=== PATIENT | male | born 1965 | race Caucasian/White ===

== ENCOUNTER 2024-04-28 12:48 | Inpatient (IN) ==
--- NOTE | 2024-04-28 12:56 | Emergency Department Note ---
Impression & Plan STEMI (ST elevation myocardial infarction), Hypertension ED Provider Note Name: SATYA ARMSTRONG Age: 58 Sex: Male Arrives Via: Ambulance Informant: Patient, EMS, ED Provider: Earl Melendez MD Chief Complaint: Chest pain Impression: As per impressions above Medical Decision Makin-year-old gentleman with history of hypertension though no other significant past medical history arrives from outside facility after being diagnosed with a STEMI. I had excepted the patient prior to arrival we did activate the Operational Intelligence Analyst team. Patient was evaluated on arrival repeat EKG is more reassuring. Chest x- ray is reassuring. Laboratory workup was sent. His blood pressure was treated with labetalol and he was loaded with heparin and Brilinta. Patient breathing comfortably throughout. He is taken to the Operational Intelligence Analyst for further management. Given findings and history I do not feel that symptoms are consistent with aortic dissection or PE at this time. I believe primary cause is cardiac. Triage/Nursing Notes reviewed by Me Differential:Cardiac ischemia, aortic dissection, pulmonary embolism, pneumothorax, pneumonia, pericarditis, myocarditis, esophageal rupture, GERD, cholecystitis, pancreatitis, musculoskeletal, as well as other pathologies. Vital Signs: reviewed and remarkable for HTN Interventions: Brilinta 180 mg p.o., heparin 5000 units IV, labetalol 10 mg IV Labs:ED labs Reviewed by me and remarkable for elevated troponin Imagin view chest x-ray as per my interpretation no infiltrate no effusion, normal mediastinal with EKG:As per my interpretation. Indication chest pain. Normal sinus rhythm at 81 bpm no ectopy nor ischemia. QTc 457. There are some lateral ST depressions. No previous EKGs for comparison Cardiac/Tele Monitoring: Cardiac Monitoring: An Order was placed for continuous cardiac monitoring. The monitor shows a rate of 80 with a normal sinus rhythm. Consults:Discussed with Dr. Saenz of interventional cardiology who evaluated the patient on arrival and took patient to the Operational Intelligence Analyst. Plan: Disposition:Hospitalization. Taken to Operational Intelligence Analyst Condition: Good History of Present Illness: 58-year-old gentleman arrives for evaluation of chest pain. Patient notes development of chest pain around 10 AM this morning. Substernal left-sided pressure-like. No associated symptoms. Presented to outside hospital where patient was found to have STEMI morphology on EKG. He was given aspirin, nitro, morphine. Pain improved. He was sent to our facility via EMS for cardiac Operational Intelligence Analyst availability. Patient arrives stating minimal symptoms at this time. He has no significant known cardiac disease. Does have a history of hypertension. Denies significant family history of cardiac disease. Patient was previously a smoker but this is quite remote. Denies any falls, trauma, injuries. He has not had any recent palpitation, nausea, vomiting, fevers, lightheadedness, syncope or other concerning signs or symptoms. He is not currently having abdominal pain back pain headache or neck pain. No neurologic deficits. Past Medical History: Hypertension Home Medications: None Allergies:NKDA Vitals:Blood Pressure: 200/105, Pulse 80, RR 16, T 36.6C, O2 98% on RA Physical Exam: GENERAL: Patient is well appearing and in no acute distress. RESPIRATORY: No dyspnea. Clear to auscultation and equal bilaterally. CARDIOVASCULAR: Regular rate and rhythm.No murmur appreciated. GASTROINTESTINAL: Abdomen soft, non-tender, no peritonitis. EXTREMITIES: Normal motion all extremities, no cyanosis, no edema. NEUROLOGIC: Alert and oriented. No focal neurologic deficits appreciated SKIN: No rash, no jaundice, no diaphoresis. PSYCH: Appropriate GCS: 15 ED Course: Times/Reassessments: Patient stable blood pressure improving. No further significant chest pain. Earl Melendez MD Past Med/Surg History Problem List (Updated 04/28/24 @ 17:06 by Elena Nicole MD) NSTEMI (non-ST elevated myocardial infarction) CAD (coronary artery disease), [place] coronary artery Hypercholesteremia Coronary artery calcification seen on CAT scan STEMI (ST elevation myocardial infarction) Medical History Former smoker Hypertension Family History Other Family history unknown Social History Smoking Status: Former smoker Hx Alcohol Use: No Hx Substance Use: No Preferred Language: Urdu Communication Ability: Effective Awning Spreader Required: No Beliefs That Will Affect Care: None Current Living Situation: Spouse Feels Safe at Home: Yes Safety Concerns: Feels Safe At This Time Assistive Devices: None Allergies Allergies Allergy/AdvReac Type Severity Reaction Status Date / Time erythromycin base Allergy Unknown Verified 04/28/24 16:39 Home Meds Previous Rx's Medication Instructions Recorded aspirin 81 mg tablet,delayed 81 mg PO QAM #30 tabs 04/28/24 release metoprolol tartrate 25 mg tablet 25 mg PO BID #60 tabs 04/28/24 Results & Data (ED) Vital Signs Vital Signs - 24 hr 04/28/24 12:51 04/28/24 12:51 04/28/24 12:51 Temperature 36.9 C Temperature Source Oral Pulse Rate 77 Pulse Rate [Apical] 78 Pulse Rhythm Regular Pulse Rhythm [Apical] Regular Pulse Strength Normal Pulse Strength [Apical] Normal Respiratory Rate 22 22 Respiratory Effort / Characteristics Non-Labored Non-Labored Respiratory Depth Normal Normal Respiratory Pattern Regular Regular Blood Pressure 201/127 H Blood Pressure [Left Arm] 201/127 H Blood Pressure Mean 151 Blood Pressure Mean [Left Arm] 151 Blood Pressure Position [Left Arm] Lying Pulse Oximetry 98 97 Oxygen Delivery Method Room Air Room Air Room Air Sepsis Recent Fever Within 48 Hours No Sepsis New/Unexplained Change in Mental Status No Sepsis Action Taken by Nursing No Action Required 04/28/24 12:59 04/28/24 13:08 Temperature Temperature Source Pulse Rate 77 78 Pulse Rate [Apical] Pulse Rhythm Pulse Rhythm [Apical] Pulse Strength Pulse Strength [Apical] Respiratory Rate Respiratory Effort / Characteristics Respiratory Depth Respiratory Pattern Blood Pressure 189/124 H Blood Pressure [Left Arm] Blood Pressure Mean Blood Pressure Mean [Left Arm] Blood Pressure Position [Left Arm] Pulse Oximetry Oxygen Delivery Method Sepsis Recent Fever Within 48 Hours Sepsis New/Unexplained Change in Mental Status Sepsis Action Taken by Nursing Laboratory Data 04/28/24 15:23 04/28/24 12:52 Lab Results 04/28/24 04/28/24 Range/Units 12:52 12:58 WBC 10.17 (4.8-10.8) K/ul RBC 4.91 (4.70-6.10) M/uL Hgb 14.9 (14.0-18.0) g/dl POC Hgb 15.3 (14.0-18.0) g/dl Hct 44.8 (42.0-52.0) % POC Hct 45 (42-52) % MCV 91.2 (80.0-100.0) fL MCH 30.3 (25.0-34.0) pg MCHC 33.3 (32.0-36.0) g/dL RDW Std Deviation 41.8 (36.4-46.3) fL RDW Coeff of Julia 12.8 (11.5-14.5) % Plt Count 174 (130-400) K/uL MPV 10.3 (9.4-12.4) fL Immature Gran % (Auto) 0.4 % Neut % (Auto) 79.6 % Lymph % (Auto) 10.5 % Chase % (Auto) 8.5 % Eos % (Auto) 0.7 % Baso % (Auto) 0.3 % Neut # (Auto) 8.10 H (1.40-6.50) K/uL Lymph # (Auto) 1.07 L (1.20-3.40) K/uL Chase # (Auto) 0.86 H (0.11-0.59) K/uL Eos # (Auto) 0.07 (0.00-0.50) K/uL Baso # (Auto) 0.03 (0.00-0.20) K/uL Immature Gran # (Auto) 0.04 (0.01-0.20) K/uL PT 10.3 (9.0-12.0) Seconds INR 0.9 (0.9-1.1) APTT 28 (21-31) Seconds PTT Ratio 1.0 POC Sodium 141 (135-144) mmol/L Sodium 141 (136-145) mmol/L POC Potassium 4.3 (3.3-5.0) mmol/L Potassium 4.3 (3.5-5.1) mmol/L POC Chloride 107 (101-112) mmol/L Chloride 108 H (98-107) mmol/L Carbon Dioxide 27 (21-32) mmol/L POC Total CO2 24 (24-31) mmol/L Anion Gap 6 (3-11) POC Anion Gap 16.0 (16-25) mmol/L POC BUN 19 H (7-18) mg/dl BUN 19 (6-23) mg/dl Creatinine 1.16 (0.6-1.4) mg/dl POC Creatinine 1.2 (0.6-1.3) mg/dl Est Cr Clr Drug Dosing 75.7 ml/min eGFR 73.92 BUN/Creatinine Ratio 16.4 (10-20) Glucose 98 (70-99(Fasting)) mg/dl POC Glucose (other) 99 (70-99) mg/dl Calcium 9.1 (8.6-10.3) mg/dl POC Ioniz Calcium Pavan 1.13 (1.12-1.32) mmol/l Magnesium 1.9 (1.7-2.4) mg/dl Total Bilirubin 0.6 (0.2-1.0) mg/dl Direct Bilirubin 0.1 (0-0.2) mg/dl AST 39 (13-39) U/L ALT 79 H (7-52) U/L Alkaline Phosphatase 84 (34-104) U/L Troponin I High Sens 153.8 H* (0-20) pg/ml Total Protein 7.5 (6.0-8.3) gm/dl Albumin 4.4 (3.4-5.0) gm/dl Administered Medications Heparin Sodium/Dextrose (Heparin Sodium/Dextrose) 25,000 units in 500 mls @ 0.02 mls/hr IV .Q24H [facility]; Protocol Stop: 05/28/24 15:29 Last Admin: 04/28/24 15:00 Dose: 950 units/hr, 19 mls/hr Documented By: LAF Co-signed By: WRS Discontinued Medications Fentanyl Citrate (Fentanyl Citrate Pf 100 Mcg/2 Ml Vial) Confirm Administered Dose 100 mcg .ROUTE .STK-MED ONE Stop: 04/28/24 12:58 Last Increment: 04/28/24 14:49 Dose: 75 mcg Documented By: BPY Heparin Sodium (Porcine) (Heparin Sod (Porcine) 1000 Unit/Ml) 5,000 units IV NOW ONE Stop: 04/28/24 12:55 Last Admin: 04/28/24 13:07 Dose: 5,000 units Documented By: SRL Co-signed By: QGV Heparin Sodium (Porcine) (Heparin (Porcine) 1000 Unit/Ml 10 Ml (Operational Intelligence Analyst Use Only)) Confirm Administered Dose 10,000 units .ROUTE .STK-MED ONE Stop: 04/28/24 12:58 Last Admin: 04/28/24 14:48 Dose: 5,000 units Documented By: BPY Heparin Sodium/Dextrose (Heparin 29292 Unit/500 Ml D5w) Confirm Administered Dose 25,000 units IV .STK-MED ONE Stop: 04/28/24 14:39 Last Admin: 04/28/24 16:37 Dose: Not Given Documented By: SUKH Heparin Sodium/Dextrose (Heparin Iv Adult Wt-Based Low-Dose *No* Initial Bolus Protocol) 1 each IV ONE STA; Protocol Stop: 04/28/24 15:03 Last Admin: 04/28/24 16:41 Dose: Not Given Documented By: SUKH Heparin Sodium/Sodium Chloride (Heparin In Nss Infusion 1000 Unit/500 Ml (2 U/Ml) Bag) Confirm Administered Dose 3,000 units IV .STK-MED ONE Stop: 04/28/24 12:58 Last Admin: 04/28/24 13:42 Dose: 3,000 units Documented By: MICHAELLE Ioversol (Optiray 350) Confirm Administered Dose 1 ml .ROUTE .STK-MED ONE Stop: 04/28/24 12:58 Last Admin: 04/28/24 14:47 Dose: 300 ml Documented By: MICHAELLE Labetalol HCl (Labetalol Hcl Iv 5 Mg/Ml 20ml) 10 mg IV NOW STA Stop: 04/28/24 12:55 Last Admin: 04/28/24 13:08 Dose: 10 mg Documented By: SRL Midazolam HCl (Midazolam Hcl 1 Mg/Ml 2ml Vial) Confirm Administered Dose 2 mg .ROUTE .STK-MED ONE Stop: 04/28/24 12:57 Last Admin: 04/28/24 14:49 Dose: 3 mg Documented By: Y Midazolam HCl (Midazolam Hcl 1 Mg/Ml 2ml Vial) Confirm Administered Dose 2 mg .ROUTE .STK-MED ONE Stop: 04/28/24 13:56 Last Admin: 04/28/24 16:37 Dose: Not Given Documented By: SUKH Miscellaneous Information (Patient's Allergy Info Needs Entered) 1 each N/A NOW STA Stop: 04/28/24 14:57 Last Admin: 04/28/24 16:40 Dose: 1 each Documented By: SUKH Nicardipine HCl (Nicardipine 2,000 Mcg/20 Ml Syr) Confirm Administered Dose 2,000 mcg .ROUTE .STK-MED ONE Stop: 04/28/24 12:58 Last Admin: 04/28/24 13:42 Dose: Not Given Documented By: BPY Nitroglycerin/Dextrose (Nitroglycerin/D5w 100mcg/Ml 20ml Syr) Confirm Administered Dose 2,000 mcg .ROUTE .STK-MED ONE Stop: 04/28/24 12:58 Last Admin: 04/28/24 13:42 Dose: 2,000 mcg Documented By: RUTH Ticagrelor (Ticagrelor 90 Mg Tab) 180 mg PO ONE ONE Stop: 04/28/24 12:55 Last Admin: 04/28/24 13:07 Dose: 180 mg Documented By: SRLeticia Imaging Data Radiologist's Impression: Chest X-Ray 04/28/24 12:51 XR chest 1V portable CLINICAL HISTORY: chest pain TECHNIQUE: Single frontal radiograph of the chest was obtained. Comparison: None available at the time of this dictation. FINDINGS: No lines and tubes are seen. The cardiomediastinal silhouette is normal. The lungs are clear. No evidence of pleural effusion or pneumothorax. IMPRESSION: No acute chest disease. ACT 112: Negative or not required by law. Electronically signed by: Tristan Green M.D. 04/28/2024 2:16 PM Discharge Plan Visit Data Chief Complaint: Heart Alert ED Provider: Earl Melendez Discharge Problem: STEMI (ST elevation myocardial infarction), Hypertension Patient Disposition: Admitted As Inpatient Condition: Fair Discharge Instructions Interventions: ED Discharge Assessment Last Done: 04/28/24 13:17 Discharge Problem: STEMI (ST elevation myocardial infarction) Qualifiers: Involved coronary artery: unspecified coronary artery Qualified Code(s): I21.3 - ST elevation (STEMI) myocardial infarction of unspecified site Hypertension Qualifiers: Hypertension type: unspecified Qualified Code(s): I10 - Essential (primary) hypertension
--- NOTE | 2024-04-28 13:06 | History & Physical Report ---
Date of Service April 28, 2024 Assessment & Plan (1) STEMI (ST elevation myocardial infarction): (2) Hypertension: (3) Former smoker: Plan 58-year-old male with PMHx hypertension not on medications presenting via EMS for chest pain starting at 1000 the day of arrival. Patient noted he started to have a intense chest pain starting in his left chest, substernal, spreading across the entirety of his chest. Went to outside emergency department where EKG showed signs of an inferior STEMI, so patient was sent here for catheterization availability. #STEMI/HTN Chest pain started at 1000, located substernally mainly on left side; presented to outside ED, EKG showing evidence of STEMI in inferior leads, patient transferred to [facility]; states no current chest pain but does have chest pressure. Received ASA, NTG, and morphine en route to [facility]. Not on medications for HTN normally. - Admit ICU - EKG NSR w/ ? LAD on arrival to ED, appearing to have lateral lead ST depressions per my read; rate 81 bpm - Troponin 121 en route, 153.8 upon arrival; pending repeats - CBC, CMP, grossly WNL; PT/INR 10.3/0.9; Echo pending; CXR pending - Received ASA + NTG + morphine prior to arrival to [facility]; Received Ticagrelor + labetalol + heparin in ED - No lipid panel in hx however does have low dose CT chest (2022) showing advanced coronary artery calcification --> Start atorvastatin 40mg qHS, pending lipid panel - Following cath consider addition of - Metoprolol 12.5mg + lisinopril 10mg - Cardiology consulted -> Pt to laboratory miller 04/28 --> Appreciate cardiology input and recs Dispo: Admit ICU, needs to re-establish with [facility] PCP after discharge VTE Prophylaxis: Heparin received upon arrival to ED This document was dictated utilizing [employer]. Please excuse any grammatical errors that may be secondary to use of this software. Admission and Anticipated Discharge Date Admission Date: 04/28/2024 History of Present Illness Chief Complaint: Chest pain Primary Care Provider: NO PCP 58-year-old male with PMHx hypertension not on medications presenting via EMS 58-year-old male with chest pain starting at 1000 the day of arrival. Patient noted he started to have a intense chest pain starting in his left chest, substernal, spreading across the entirety of his chest. Went to outside emergency department at [facility] where EKG showed signs of a STEMI, so patient was sent here for catheterization availability. Had already been provided with aspirin, nitro, morphine. Patient has continued chest pressure/tightness without relief, but has not had associated symptoms to include shortness of breath, palpitations, abdominal pain, N/V/D/C, or lightheadedness/dizziness. Patient is unaware of his family medical history as he was adopted. States he does have a history of hypertension, however does not take medications. Was a previous smoker, no longer smoking. Does not take daily medications. History was gathered by patient in conjunction with ED physician and computer graphics illustrator. Please see Dr. Nicole's attestation for adjustments/additions to treatment plan. Past Med/Surg History Problem List (Updated 04/28/24 @ 13:42 by Kaleigh Gregg PA-C) STEMI (ST elevation myocardial infarction) Medical History (Updated 04/28/24 @ 13:42 by Kaleigh Gregg PA-C) Former smoker Hypertension Family History (Updated 04/28/24 @ 14:38 by Elena Nicole MD) Other Family history unknown Social History Smoking Status: Former smoker Feels Safe at Home: Yes Review of Systems Review of Systems: All systems reviewed & are unremarkable except as noted in Subjective Physical Exam Physical Exam: General: No acute distress, hypertensive on arrival Skin: Warm and dry, without rashes or lesions; no diaphoresis Head: Normocephalic, atraumatic Eyes: PERRL, conjunctivae clear, sclera non-icteric ENT: External ear and ear canal without swelling; nose atraumatic; good dentition, tongue normal appearance Neck: Supple, no LAD; no JVD Cardio: RRR, no M/G/R, S1 and S2 normal Resp: No respiratory distress, Lungs CTA in all lobes bilaterally, no wheezes, rales, or rhonchi Abdomen: Soft, symmetric, nontender; No masses or hepatosplenomegaly; Bowel sounds normoactive MSK: No deformities, full ROM throughout; pulses palpable and equal; no edema. Neuro: Awake, alert; CN grossly intact Psych: Appropriate mood and affect; good judgement and insight. Results & Data Results & Data Vital Signs (Past 12 Hours) Vital Signs Pulse 04/28/24 12:59 77 Laboratory Results no labs available for review at the time of admission Code Status & VTE Plan Code Status Full VTE Prophylaxis Plan VTE Prophylaxis will be ordered: Yes Supervising Physician Co-Signing Physician Notes ELLIOT Schafer Note: I personally saw and examined the patient. I verified all gutierrez points and agree with ELLIOT Gregg with the following exceptions and/or additions: [facility] after having severe substernal and left sided CP starting at 1000 AM today. He has a h/o untreated HTN and is a former smoker but hasn't seen a doctor in a couple of years reportedly. He received ASA, NTG, morphine at outside facility and was almost pain free when I saw him shortly after arrival. I discussed his care with the ED physician and Dr. Saenz of Cardiology. History and ROS reviewed as above O- Vitals reviewed Gen: [AAOx3, NAD] HEENT: [anicteric sclerae, EOMI] CV: [RRR no mgr nl S1S2] Pulm: [CTAB no wcr] Ext: [no edema] Skin: [no rashes, warm/dry] Neuro: [full strength throughout, no facial droop] CBC, CMP, troponin reviewed, CXR reviewed A/P-58 yo male here with STEMI. Headed to laboratory miller will add on further medical management of CAD post-cath depending on clinical course add ASA, statin for now nad loaded with Brilinta and heparin check lipids, A1C, BMP, CBC in AM will need HTN treatment PG Care Time/CCT Total # of Minutes Spent Total Time Spent with Patient: Total time spent is greater than 50% in coordination of care (as documented) at patient's floor/unit and/or counseling patient: Coding Level of Care Code 64299 INT INP/OBS CARE 3/75MIN Diagnoses STEMI (ST elevation myocardial infarction) I21.3 Hypertension I10 Former smoker Z87.891
[2024-04-28] MEDS: TICAGRELOR 90 MG TAB PO ONE (13:07)
[2024-04-28] MEDS: HEPARIN SOD (PORCINE) 1000 UNIT/ML IV ONE (13:07)
[2024-04-28] MEDS: LABETALOL HCL IV 5 MG/ML 20ML IV STA (13:08)
[2024-04-28 13:10] LABS: iSTAT Creatinine 1.2 mg/dl (0.6-1.3); iSTAT Hemoglobin 15.3 g/dl (14.0-18.0); iSTAT Ionized Calcium 1.13 mmol/l (1.12-1.32); iSTAT Potassium 4.3 mmol/L (3.3-5.0)
[2024-04-28 13:11] LABS: Basophils # (auto) 0.03 K/uL (0.00-0.20); Basophils % (auto) 0.3 %; Eosinophils # (auto) 0.07 K/uL (0.00-0.50); Eosinophils % (auto) 0.7 %; Hematocrit (blood only) 44.8 % (42.0-52.0); Hemoglobin 14.9 g/dl (14.0-18.0); Immature Granulocytes # (auto) 0.04 K/uL (0.01-0.20); Immature Granulocytes % (auto) 0.4 %; Lymphocytes # (auto) 1.07 K/uL (1.20-3.40); Lymphocytes % (auto) 10.5 %; Mean Corpuscular Hemoglobin 30.3 pg (25.0-34.0); Mean Corpuscular Hgb Conc 33.3 g/dL (32.0-36.0); Mean Corpuscular Volume 91.2 fL (80.0-100.0); Mean Platelet Volume 10.3 fL (9.4-12.4); Monocytes # (auto) 0.86 K/uL (0.11-0.59); Monocytes % (auto) 8.5 %; Neutrophils % (auto) 79.6 %; Platelet Count 174 K/uL (130-400); RDW Coefficient of Variation 12.8 % (11.5-14.5); RDW Standard Deviation 41.8 fL (36.4-46.3); Red Blood Count 4.91 M/uL (4.70-6.10); White Blood Count 10.17 K/ul (4.8-10.8)
[2024-04-28 13:24] LABS: Albumin Level 4.4 gm/dl (3.4-5.0); BUN Creatinine Ratio 16.4 (10-20); Bilirubin Direct 0.1 mg/dl (0-0.2); Bilirubin,Total 0.6 mg/dl (0.2-1.0); Calcium 9.1 mg/dl (8.6-10.3); Creatinine Clr Calc Pharmacy 75.7 ml/min; Magnesium 1.9 mg/dl (1.7-2.4); Potassium 4.3 mmol/L (3.5-5.1); Total Protein 7.5 gm/dl (6.0-8.3)
[2024-04-28 13:34] LABS: Troponin I High Sensitivity 153.8 pg/ml (0-20)
[2024-04-28 13:36] LABS: INR 0.9 (0.9-1.1); Partial Thromboplastin Time 28 Seconds (21-31); Prothrombin Time 10.3 Seconds (9.0-12.0)
[2024-04-28] MEDS: niCARdipine 2,000 MCG/20 ML SYR ONE (13:42)
[2024-04-28] MEDS: NITROGLYCERIN/D5W 100MCG/ML 20ML SYR ONE (13:42)
--- NOTE | 2024-04-28 14:17 | XRay Report ---
XR chest 1V portable CLINICAL HISTORY: chest pain TECHNIQUE: Single frontal radiograph of the chest was obtained. Comparison: None available at the time of this dictation. FINDINGS: No lines and tubes are seen. The cardiomediastinal silhouette is normal. The lungs are clear. No evid ence of pleural effusion or pneumothorax. IMPRESSION: No acute chest disease. ACT 112: Negative or not required by law. Electronically signed by: Tristan Green M.D. 04/28/2024 2:16 PM
[2024-04-28] MEDS: OPTIRAY 350 ONE (14:47)
[2024-04-28] MEDS: HEPARIN (PORCINE) 1000 UNIT/ML 10 ML (CATH LAB USE ONLY) ONE (14:48)
[2024-04-28] MEDS: fentaNYL citrate PF 100 MCG/2 ML VIAL ONE (14:49)
[2024-04-28] MEDS: MIDAZOLAM HCL 1 MG/ML 2ML VIAL ONE ×2 (14:49→16:37)
[2024-04-28] MEDS ORDERED: ONDANSETRON INJ 2 MG/ML 2 ML VIAL IV PRN (14:56)
[2024-04-28] MEDS ORDERED: ATROPINE SULFATE 0.1 MG/ML 10ML SYR IV PRN (14:56)
--- NOTE | 2024-04-28 14:56 | Pre Anesthesia Assessment ---
Date of Service April 28, 2024 Pre Sedation Assessment Vital Signs Temp Pulse Pulse Resp BP BP Pulse Ox 04/28/24 13:15 73 21 183/117 H 96 04/28/24 13:08 78 189/124 H 04/28/24 12:59 77 04/28/24 12:51 78 22 201/127 H 97 04/28/24 12:51 04/28/24 12:51 36.9 C 77 22 201/127 H 98 O2 Del Method 04/28/24 13:15 Room Air 04/28/24 13:08 04/28/24 12:59 04/28/24 12:51 Room Air 04/28/24 12:51 Room Air 04/28/24 12:51 Room Air Cardiovascular RRR, no murmur, no edema Respiratory normal respiratory effort, lungs clear to auscultation Pre-Sedation Airway Assessment Smoking Status: Former smoker mallampati 2 ASA 4 Notes The planned sedation has been discussed with the patient. Informed Consent was obtained. I have identified the patient, determined the appropriateness of nataly tion and have assessed the patient immediately prior to the procedure. All medicine(s) and interventions are by my order.
[2024-04-28] MEDS: HEPARIN SODIUM/DEXTROSE 25,000 UNITS/500 ML BAG IV SCH (15:00)
--- NOTE | 2024-04-28 15:06 | Post Anesthesia Assessment ---
Date of Service April 28, 2024 Post Sedation Assessment Vital Signs Temp Pulse Pulse Resp BP BP Pulse Ox 04/28/24 13:15 73 21 183/117 H 96 04/28/24 13:08 78 189/124 H 04/28/24 12:59 77 04/28/24 12:51 78 22 201/127 H 97 04/28/24 12:51 04/28/24 12:51 36.9 C 77 22 201/127 H 98 O2 Del Method 04/28/24 13:15 Room Air 04/28/24 13:08 04/28/24 12:59 04/28/24 12:51 Room Air 04/28/24 12:51 Room Air 04/28/24 12:51 Room Air Recovery Score Activity: Moves 4 extremities Respiration: Deep Breath/Cough Circulation: +/-20% PreAnes Value Consciousness: Fully Awake Oxygen Saturation: > 92% On Room Air Discharge Sedation Level of Care: Fast Track Phase II Post Sedation Plan On clinical assessment, the patient appears to have tolerated the sedation without complications. Patient is recovering as anticipated. Patient will continue to be monitored by nursing and may be discharged when sedation discharge criteria are met per below protocol. Upon Completions of procedure up to 15 minutes continue every 5 minute vital signs and the P.A.R. score; then discharge to a Phase I or Fast Track to Phase II per the following guidelines: * Discharge Patient to appropriate Phase II area if PAR is 8 or greater or return to pre- procedure baseline. The post - procedure orders will be as directed. * If PAR score is less than 8 or not return to pre-procedure baseline then patient will follow Phase I monitoring till PAR is reached for Phase II. The Phase I may be done in procedure room or may call to secure a Phase I area. * If naloxone or flumazenil are used for reversal, hold in Phase I for continued monitoring from when last reversal dose was given for a minimum of 60 minutes or longer pending the nurse and/or physician discretion of patient condition before discharge to Phase II. Please call the Sedation Physician to re-evaluate and complete post-note for discharge to Phase II area. Do NOT discharge from procedure sedation or Phase 1 until post- sedation evaluation note is complete by procedure /sedation MD Sedation Discharge Instructions to be given to the patient at discharge to home. [facility] Procedure Codes (Charges) Indication for Procedure Indication for procedure: inferior STEMI Sedation/Anesthesia Procedure 1: Sedation/Anesthesia: 57676 Mod Sedation by the same physician;Init15 Min Child Age 5 & Up (initial 15 min, start 1326) Total Sedation Time (minutes): 68 Procedure 2: Sedation/Anesthesia: 05907 Mod Sedation by the same physician; Ea [id number] Minutes (additional 53 min) Total Sedation Time (minutes): 68
[2024-04-28 15:46] LABS: Basophils # (auto) 0.03 K/uL (0.00-0.20); Basophils % (auto) 0.3 %; Eosinophils # (auto) 0.03 K/uL (0.00-0.50); Eosinophils % (auto) 0.3 %; Hematocrit (blood only) 45.5 % (42.0-52.0); Hemoglobin 15.5 g/dl (14.0-18.0); Immature Granulocytes # (auto) 0.05 K/uL (0.01-0.20); Immature Granulocytes % (auto) 0.5 %; Lymphocytes # (auto) 1.31 K/uL (1.20-3.40); Lymphocytes % (auto) 12.1 %; Mean Corpuscular Hemoglobin 30.8 pg (25.0-34.0); Mean Corpuscular Hgb Conc 34.1 g/dL (32.0-36.0); Mean Corpuscular Volume 90.3 fL (80.0-100.0); Mean Platelet Volume 10.4 fL (9.4-12.4); Monocytes # (auto) 0.73 K/uL (0.11-0.59); Monocytes % (auto) 6.8 %; Neutrophils # (auto) 8.65 K/uL (1.40-6.50); Platelet Count 190 K/uL (130-400); RDW Coefficient of Variation 12.8 % (11.5-14.5); RDW Standard Deviation 42.5 fL (36.4-46.3); Red Blood Count 5.04 M/uL (4.70-6.10)
[2024-04-28 16:01] LABS: Chol HDL Ratio 4.7 (0-5)
[2024-04-28] MEDS: HEPARIN 25000 UNIT/500 ML D5W IV ONE (16:37)
--- NOTE | 2024-04-28 16:39 | Cardiology Consultation ---
Date of Consultation April 28, 2024 Assessment & Plan (1) STEMI (ST elevation myocardial infarction): (2) Coronary artery calcification seen on CAT scan: (3) Hypercholesteremia: Plan For transfer to [facility] [place] for further eval for possible CABG vs higher risk CBI. Cont ASA, IV heparin, hold further Brilinta until eval. Start Beta israel and statin for 2nd prevention. Depending on tertiary eval, further recommendations will follow. I would like to follow up with patient post DC from [place]. He needs to establish with a local PCP, since prior family physician moved out of area. History of Present Illness Reason for Consultation: cardiology consult for STEMI Attending Physician: José Miguel Saenz MD, PhD History of Present Illness This is a 58 y/o man, retired [employer], seen in CV consultation in conjunction with Dr. Saenz. Most of the history was obtained from the patients [place]. He has had hypertension which was being treated with lifestyle modification, stopped smking about 2 years ago, hx of being adopted, family his is unknown. His old chart was reviewed. He presented today with new onset CP described as pressure today. Was initially taken to [facility] in [place] and transferred to [facility] due to acute ST changes showing inferior ST elevation. Initial cardiac enzymes were abnormal. Patient treated for initial severe HTN. Pat taken to the photo lab specialist and found to have significant Cx and LAD disease with heavily calcified vessels. V gram shows lateral hypo-akinesis. LVEDP slightly increased approx 18-20mmHb. After discussion with Dr. Saenz with both felt the Cx was the culprit vessel and he attempted to stent the Cx vessel, but was unable to place stent due to tortuosity. He was able to do limited PTCA. Because of the heavily calcified LAD lesion with a bifurcation lesion involving the prox-mid LAD at the 1st Diagonal vessel, it was decided that this disease would be better treated at tertiary center were CT surgery was available. Dr. Saenz spoke with Dr. Washington who accepted the patient in transfer. CABG vs CBI will be determined there. Pt was given initial dose of Brilinta, is on IV heparin as well as ASA. Pt will need Beta israel as well as statin initiated. Cath results were reviewed with patients and they agree with transfer. Of note, he underwent low dose CT scan in early 2022 done for hx tobacco use for screening for lung CA which was negative, but did show extensive coronary artery calcification of the LAD as well as Cx. Allergies Allergy/AdvReac Type Severity Reaction Status Date / Time No Known Allergies Allergy Unverified 04/28/24 16:33 Patient History Medical History Former smoker Hypertension Family History Other Family history unknown Social History Smoking Status: Former smoker Hx Alcohol Use: No Hx Substance Use: No Preferred Language: Kazakh Communication Ability: Effective Engineering Geologist Required: No Beliefs That Will Affect Care: None Current Living Situation: Spouse Feels Safe at Home: Yes Safety Concerns: Feels Safe At This Time Assistive Devices: None Review of Systems Review of Systems: All systems reviewed & are unremarkable except as noted in HPI & below Physical Exam Physical Exam: limited exam performed due to being taken to photo lab specialist Results & Data Vital Signs (Past 12 Hours) Vital Signs Temp Pulse Pulse Resp BP BP Pulse Ox 04/28/24 16:00 69 18 158/115 H 99 04/28/24 15:56 74 04/28/24 15:45 71 15 147/107 H 97 04/28/24 15:33 76 22 99 04/28/24 15:30 168/112 H 04/28/24 15:30 168/112 H 04/28/24 15:24 75 18 98 04/28/24 15:15 160/110 H 04/28/24 15:10 151/112 H 04/28/24 13:15 73 21 183/117 H 96 04/28/24 13:08 78 189/124 H 04/28/24 12:59 77 04/28/24 12:51 78 22 201/127 H 97 04/28/24 12:51 04/28/24 12:51 36.9 C 77 22 201/127 H 98 O2 Del Method 04/28/24 16:00 Room Air 04/28/24 15:56 04/28/24 15:45 Room Air 04/28/24 15:33 Room Air 04/28/24 15:30 04/28/24 15:30 04/28/24 15:24 Room Air 04/28/24 15:15 04/28/24 15:10 04/28/24 13:15 Room Air 04/28/24 13:08 04/28/24 12:59 04/28/24 12:51 Room Air 04/28/24 12:51 Room Air 04/28/24 12:51 Room Air Laboratory Results Abnormal lab results 04/28/24 04/28/24 04/28/24 Range/Units 12:52 12:58 13:34 Neut # (Auto) 8.10 H (1.40-6.50) K/uL Lymph # (Auto) 1.07 L (1.20-3.40) K/uL Hodgeman # (Auto) 0.86 H (0.11-0.59) K/uL Activ Coag Time Kaolin 187 H (94-140) SECONDS Chloride 108 H (98-107) mmol/L POC BUN 19 H (7-18) mg/dl ALT 79 H (7-52) U/L Troponin I High Sens 153.8 H* (0-20) pg/ml Cholesterol (0-200) mg/dl 04/28/24 04/28/24 04/28/24 Range/Units 14:00 14:29 15:23 Neut # (Auto) 8.65 H (1.40-6.50) K/uL Lymph # (Auto) (1.20-3.40) K/uL Hodgeman # (Auto) 0.73 H (0.11-0.59) K/uL Activ Coag Time Kaolin 210 H 349 H (94-140) SECONDS Chloride (98-107) mmol/L POC BUN (7-18) mg/dl ALT (7-52) U/L Troponin I High Sens 1851.0 H* D (0-20) pg/ml Cholesterol 240 H (0-200) mg/dl
[2024-04-28] MEDS: Patient's ALLERGY Info needs ENTERED STA (16:40)
[2024-04-28 16:41] LABS: Estimated Average Glucose 108 mg/dl; Hemoglobin A1C 5.4 % (4.5-5.6)
[2024-04-28] MEDS: Heparin IV Adult Wt-Based Low-Dose *NO* INITIAL Bolus Protocol IV STA (16:41)
--- NOTE | 2024-04-28 16:41 | Electrocardiogram Report ---
Test Reason : Blood Pressure : */* mmHG Vent. Rate : 81 BPM Atrial Rate : 81 BPM P-R Int : 138 ms QRS Dur : 98 ms QT Int : 394 ms P-R-T Axes : 48 78 46 degrees QTcB Int : 457 ms Normal sinus rhythm Possible Left atrial enlargement Nonspecific ST abnormality Abnormal ECG No previous ECGs available Inferior ST elevation has improved c/w outside ECG Confirmed by Ava Gonzales (Alonso) on 04/28/2024 4:41:04 PM Referred By: REFERRED SELF Confirmed By: Ava Gonzales
--- NOTE | 2024-04-28 17:10 | Discharge Summary ---
Discharge Summary Date of Service April 28, 2024 Principal Dx & Hospital Course #1 = Principal Diagnosis (1) CAD (coronary artery disease), [place] coronary artery: (2) NSTEMI (non-ST elevated myocardial infarction): (3) Hypertension: (4) Hypercholesteremia: (5) Former smoker: Plan This patient is a 58-year-old male with PMHx hypertension not on medications presenting via EMS for chest pain starting at 1000 the day of arrival. Patient noted he started to have a intense chest pain starting in his left chest, substernal, spreading across the entirety of his chest. Went to outside emergency department where EKG showed signs of an inferior STEMI, so patient was sent here for catheterization availability. #STEMI/HTN/hyperlipidemia Chest pain started at 1000, located substernally mainly on left side; presented to outside ED, EKG showing evidence of STEMI in inferior leads, patient transferred to [facility]. Received ASA, NTG, and morphine en route to [facility]. ECG at this facility showed ST depressions in the lateral leads. Troponin initially here was 153 and increased to 1851 prior to discharge. Not on medications for HTN normally. He had a cardiac catheterization which showed severe CAD with multivessel disease and had angioplasty but no stents placed. Recommendation was transfer out to tertiary care center for evaluation for CABG. He did receive a load of Brilinta prior to catheterization. He was started on aspirin, heparin drip, atorvastatin 40 mg daily, metoprolol 25 Mg p.o. twice daily prior to discharge CBC, CMP, grossly WNL; PT/INR 10.3/0.9; Echo pending at the time of discharge. Chest x-ray normal Lipid panel showed significant hyperlipidemia with total cholesterol being 240, LDL elevated at 172, HDL 51. Hemoglobin A1c was normal at 5.4% He was accepted in transfer by CT surgeon Dr. Jones at [facility] as discussed with Dr. Saenz/cardiology here at [facility]. He is in stable condition for transfer by ground ACLS. Dispo: Discharge to [facility] VTE Prophylaxis: Heparin gtt Notes For Next Care Provider Transferred to [facility] Medication Changes From Visit See list below Admission HPI Per Admitting Provider 58-year-old male with PMHx hypertension not on medications presenting via EMS 58-year-old male with chest pain starting at 1000 the day of arrival. Patient noted he started to have a intense chest pain starting in his left chest, substernal, spreading across the entirety of his chest. Went to outside emergency department at [facility] where EKG showed signs of a STEMI, so patient was sent here for catheterization availability. Had already been provided with aspirin, nitro, morphine. Patient has continued chest pressure/tightness without relief, but has not had associated symptoms to include shortness of breath, palpitations, abdominal pain, N/V/D/C, or lightheadedness/dizziness. Patient is unaware of his family medical history as he was adopted. States he does have a history of hypertension, however does not take medications. Was a previous smoker, no longer smoking. Does not take daily medications. History was gathered by patient in conjunction with ED physician and supervisor of research. Please see Dr. Nicole's attestation for adjustments/additions to treatment plan. Discharge Exam Constitutional WD/WN, vitals as above Respiratory normal respiratory effort, lungs clear to auscultation Cardiovascular RRR, no murmur, no edema Neurologic PERRL, EOMI, accommodation nl, no face palsy, no dysarthria moves all extremities and awake; no focal motor deficits Psychiatric A+Ox3, euthymic affect Discharge Plan Discharge Items Patient Disposition: Transfer Acute Care Hospital Reason For Visit: HEART ALERT Discharge Diagnosis: Severe CAD Condition on Discharge: Fair Activity: As commented below Exercise/Sports: Rest today Non-emergency contact: Primary Care Provider and Wheat Combine Driver Call non-emergency contact if: you have any medication questions and your symptoms worsen Follow-up/Referrals: PCP,NO [Primary Care Provider] - Diet: Heart Healthy Addtl Attending Provider Instructions: Transferred to [facility] for evaluation for CABG Stand-Alone Forms: My [facility] Skilled Items Patient informed of condition?: Yes DNR: No Discharge Level of Care: Other Communicable Disease: No Discharge Prognosis: Stable Lines: Peripheral IV Urinary Catheter: No Medications and DC Order Prescriptions: New aspirin 81 mg Tablet,Delayed Release (Dr/Ec) 81 mg PO QAM Qty: 30 0RF metoprolol tartrate 25 mg Tablet 25 mg PO BID Qty: 60 0RF atorvastatin 40 mg Tablet 40 mg PO QAM Qty: 30 0RF Discharge Orders: Discharge Order (Routine); Ordered 04/28/24 Ordered By: Elena Nicole Admission Data Admit Date/Time: 04/28/24 13:15 Attending Provider: José Miguel Saenz Admit Provider: Elena Nicole Primary Care Provider: PCP,NO Other Providers: Elena Nicole; Ava Gonzales; Jamie Addison; Juan Manuel Bales; Jerson Cristobal; Owen Harper; Sunil Wylie; Jonn Ingram; Charanjit Santos; Lexi Reed; Rosey Carlson; Walter Haynes; Kike Elias; Yahaira Castro Hospital Stay Data Consultations 04/28/24 12:52 ED Decision to Admit Stat 04/28/24 13:17 Consult Cardiology Routine Consult Shell Molder Routine 04/28/24 15:01 Consult Cardiac Rehabilitation Routine Procedures Performed Operation Date: 04/28/24 12:45 Actual Procedures p Cineradiography w/Routine Exam - José iMguel Saenz MD, PhD p Cath, Left with Cors and Vent - José Miguel Saenz MD, PhD p POBA SGL Vessel - José Miguel Saenz MD, PhD Diagnostic Imagining Performed 04/28/24 12:56 CL Cath Imgs for PACS use only Stat Discharge Instructions Given to Patient (Per Discharging Provider) Transferred to [facility] for evaluation for CABG Total Time Total Time Spent Total Time Spent (In Minutes): 60 minutes Total Time Includes: Examination of the Patient, Discharge Planning, Medication Reconciliation and Communication With Other Providers Coding Level of Care Code 54098 INP/OBS DISCH >30 MIN Diagnoses CAD (coronary artery disease), [place] coronary artery I25.10 NSTEMI (non-ST elevated myocardial infarction) I21.4 Hypertension I10 Hypercholesteremia E78.00 Former smoker Z87.891
--- NOTE | 2024-04-28 18:13 | Cardiac Catheterization ---
ACC Data: Core Feeder Cardiac Status Clinical evaluation leading to the procedure CAD Presenation: STEMI Anginal Classification: CCS IV Heart Failure: No Cardiogenic Shock within 24 Hours: No Cardiac Arrest within 24 Hours: No Imaging Studies Past 6 Months: No STEMI OR Non-STEMI Symptom Onset Date: 04/28/24 Symptom Onset Time: 11:00 Thrombolytics: No Coronary Anatomy Dominant: Right Left Main (% Stenosis): Distal (30%) LAD (% Stenosis): Proximal (Diffuse calcification up to 80% stenosis), Mid (Long eccentric up to 90% stenosis with calcium) and Distal (Early distal up to 50% stenosis) D1 (% Stenosis): Ostial (80 to 90% calcified) D2 (% Stenosis): Normal Circumflex (% Stenosis): Ostial (Calcified), Proximal (Calcified diffuse mild) and Mid (90 to 95% with ectasia and calcification) OM1 (% Stenosis): Normal OM2 (% Stenosis): Normal L PL1 (% Stenosis): Normal (Mild luminal irregularities) RCA (% Stenosis): Proximal (Mild less than 40%) and Mid (Long eccentric 50 to 70%) R PDA (% Stenosis): Normal R PL1 (% Stenosis): Normal Left Ventricular Angiography EF (%): 55% Wall Motion: Inferior (Inferior lateral hypokinesis) Diagnostic Physicians Name: José Miguel Saenz MD, PhD Closure Device Percutaneous Entry Location: Radial Closure Device: Radial Band Recommendations: Medical Therapy and/or Counseling, PCI without planned CABG and CABG PCI Indication: PCI for STEMI - Stable Lesion Segment Name: Mid circumflex Culprit Artery: Yes Stenosis Prior to Rx (%): 90 to 95% Previously Treated Lesion: No Lesion Complexity: High/C Lesion Length (mm): 22 Thrombus Present: No Bifurcation Lesion: No Guidewire Across Lesion: Yes Intraprocedure Events Significant Disection: No Perforation: No Cardiac Cath Procedure Full Procedure Date April 28, 2024 Pre-Procedure Diagnosis Pre-Procedure Diagnosis: STEMI AUC Score AUC Score: 09 Post-Procedure Diagnosis Post-Procedure Diagnosis: Severe CAD and Successful PCI Procedure(s) Performed Procedure(s) Performed: Coronary Angiography, Left Heart Cath, LV Angiography, PTCA and Procedure (IFR analysis of RCA) Line Staker José Miguel Saenz MD, PhD Estimated Blood Loss Estimated Blood Loss: Less than 10 cc Medication(s) Medication(s): Fentanyl, Heparin, Lidocaine 1%, Nicardipine, Nitroglycerin and Versed Summary of Findings Brief description: Patient was brought to the cardiac catheterization suite where he was shaved and prepped in a sterile fashion. Sedated using IV Versed and fentanyl. Soft tissues of the right wrist were anesthetized using 2 mL of 1% Xylocaine. The right radial artery was accessed using a modified Seldinger technique and a 6 Serbian radial artery glide sheath was placed. Patient was provided anticoagulation with IV heparin and antispasmodics including nicardipine and nitroglycerin. All catheters were advanced and exchanged over a 0.035 J-tip wire. Right coronary angiography was performed in orthogonal views with a 6 Serbian JR 4 guide catheter. Left coronary angiography was performed in orthogonal views with a 5 Serbian [place] 4 diagnostic catheter. Left heart cath and left ventriculogram were performed with a 5 Serbian angled pigtail catheter. ACT was checked and additional heparin was provided. Diagnostic catheter was removed and decision was made to proceed with IFR analysis of the RCA lesion. A 6 Serbian JR4 guide catheter was again used to engage the right coronary. Through this the Doppler wave wire was advanced in position with the transducer just distal to the guide catheter tip. The system was flushed with normal saline and the pressures were equalized. Guidewire was then advanced and positioned distal to the lesion in the mid RCA. iFR was sampled 3 times. The guidewire was removed. The guide catheter was then removed. Given the findings on the left ventriculogram and the multivessel coronary disease which appeared severe on the left side decision was made to attempt PCI of the circumflex which was most consistent with the wall motion abnormality. A 6 Serbian EBU 3.0 guide catheter was advanced and used to engage the left main coronary. Through this, the BMW reversal guidewire was advanced and with quite a bit of difficulty we were eventually able to position this wire distal to the lesion in the circumflex. Predilatation was performed using a 2.5 x 12 mm trek balloon with 2 inflations up to 14 ruddy. Balloon was removed. Attempted to deliver a 3.0 x 28 mm yakelin point drug-eluting stent but we were unsuccessful. Stent was removed and a 6 Serbian guide liner [place] catheter was advanced over the guidewire. The 3.0 x 28 mm yakelin point stent was then readvanced over the wire but despite multiple attempts we could not deliver this stent across the lesion. It was therefore removed. Decided to try to shorter stents hoping that navigating the tortuous circumflex and calcification would be easier. A 3.0 x 18 mm yakelin point drug-eluting stent was advanced through the guide liner and over the guidewire. However, despite multiple maneuvers we were unable to deliver this stent. It was therefore removed from the patient. It was clear that the tortuosity and calcification were preventing us from safely delivering stents via the radial approach. Therefore, decision was made to remove the GuideLiner and tried to deliver intracoronary lithotripsy catheter. A 2.5 x 12 mm shockwave catheter was then advanced over the guidewire but again we could not deliver this across the lesion. It was therefore removed. Finally, a 2.5 x 12 mm NC Steven balloon was introduced in order to provide more vigorous dilatation of the lesion. It could not be delivered. It was therefore removed. The guide liner catheter was then reinserted and we were then able to deliver the 2.5 x 12 mm NC Steven balloon across the lesion. The lesion was dilated to 20 ruddy. The balloon was then removed. Word Processing Specialist angiography was performed. Results were acceptable. Since the patient had no chest pain, had additional severe coronary disease wh ich would need to be addressed, and since the stents could not be delivered secondary to calcification, tortuosity, and the radial approach we decided to forego further attempts at stent implantation. Additionally, patient had received a significant amount of IVP contrast and radiation. Also, the lesion did not appear to be an acute occlusion. After discussion with the general urgent care we decided on medical management with plan for transfer to tertiary center regarding revascularization by surgical means or complex multivessel PCI. Final angiographic evaluation was performed. Guide catheter was removed over the J-wire. Radial artery sheath was removed. Hemostasis was obtained using the TR band. Patient was then admitted to the ICU for further workup and management. This ended the case. Coronary angiography findings: POW-damob-bkrrsdl vessel bifurcating into LAD and circumflex. Distally there is 30% mildly calcified disease. SSE-gmdof-jggempe and transapical. The proximal to mid segment has mild to moderate calcification. Just before the first diagonal there is an 80% stenosis. First major branch is a septal followed by a large branching first diagonal. The ostium of the first diagonal has 80 to 90% calcified disease. The mid LAD after the diagonal has a long eccentric lesion appearing up to 90% stenosed. It is also calcified. There is then a small second diagonal in the early distal LAD has up to 50% stenosis. It then appears to have luminal irregularities. AHb-hnspu-ajvmmmn and nondominant. And has an acute angle of takeoff as it enters into the AV groove. There is ostial calcification in the proximal AV groove vessel is also moderately calcified. It gives a small to medium caliber OM1 and then an atrial branch. The mid AV groove vessel has 90 to 95% narrowing which is preceded by ectasia and is calcified. At the ectatic level it almost appears that there is an occluded marginal branch but we do not see any filling antegrade or retrograde through collateralization. After than 90 to 95% stenosis there is continuation of the disease although this appears to be more on the order of 50 to 70% narrowing. The distal circumflex terminates as a large branching posterolateral. This has mild scattered disease. RCA-this is large caliber and dominant. Proximally there is mild less than 40% stenosis. The mid segment has long eccentric stenosis of 50 to 70%. Distally there is no significant disease in the vessel then bifurcates into a large PDA and posterolateral branch. These vessels have no disease. Left ventriculogram: EF-55 to 60% Wall motion-there is inferior lateral hypokinesis noted on the OLMSTEAD ventriculogram IFR of RCA: 0.99, 0.99, 0.99. Therefore, this is not hemodynamically significant. PTCA of mid circumflex: balloon angioplasty yields reduction of severe disease to no more than 50% stenosis. CASEY-3 flow post PTCA No evidence of dissection or perforation post PTCA Summary: 1. Severe multivessel coronary artery disease involving the circumflex, LAD, and large diagonal. Moderate disease in the RCA. 2. IFR analysis of the RCA lesion demonstrates that this is not hemodynamically significant. 3. PTCA of the mid circumflex was performed with successful improvement of the stenosis. However, we were unsuccessful in delivering any stents across the lesion. 4. Preserved LVEF. Inferolateral wall motion abnormality may be more of a chronic issue rather than acute issue given the lack of obvious acute thrombotic stenosis in any of the coronaries. 5. Recommend patient be referred to tertiary center for "heart team evaluation". Three-vessel CABG (LAD, diagonal, circumflex) versus complex multivessel PCI with surgical backup. 6. Patient will remain on heparin drip until revascularization. Guideline directed medical therapy for secondary prevention of coronary disease including low-dose aspirin, high intensity statin therapy, beta-israel, plus or minus TAJ inhibitor/ARB as tolerated. Hemodynamics Rest Ao:: 144/96 mmHg Final Ao: 169/107 mmHg LV: 140/15 mmHg, LVEDP 19 mmHg Recommendations Recommendations: Medical Therapy and/or Counseling, PCI without planned CABG and CABG Radiation Exposure (mGy) 3697 mGy, fluoroscopy time 20.3 minutes Contrast (mls) 300 cc Anesthesia 3 mg Versed, 75 mcg fentanyl IV. Start time 1326, end time 1434 Procedural Complication(s) None Disposition ICU I attest to the content of the Intraoperative Record and any orders documented therein. Any exceptions are noted below. [facility] Card Cath Procedure Codes Cardiac Catheterization Procedure 1: Cardiovascular Cath Procedures: 08341 Coronaries and LHC (+/-LV) Procedure 2: Cardiovascular Cath Procedures: 97871 (Doppler) Pressure Wire (RCA) Moderate Sedation Procedure 1: Sedation/Anesthesia: 86134 Mod Sedation by the same physician;Init15 Min Child Age 5 & Up (Initial 15 minutes, start 1326) Procedure 2: Sedation/Anesthesia: 13309 Mod Sedation by the same physician; Ea [id number] Minutes (Additional 53 minutes, end time 1434) Angioplasty Procedure 1: Cardiovascular Angioplasty Procedures: 80266 PTCA; Single mafor coronary artery or branch RC LC LD (LCx) PG Care Time/CCT Total # of Minutes Spent Total Time Spent with Patient: Total time spent is greater than 50% in coordination of care (as documented) at patient's floor/unit and/or counseling patient:
[2024-04-28] MEDS: ATORVASTATIN 40 MG TAB PO STA (18:36)
[2024-04-28] MEDS: METOPROLOL TARTRATE 25 MG TAB PO SCH (19:17)
[2024-04-28 19:26] VITALS: TEMP 98.6
[2024-04-28 19:51] VITALS: BP 182/115; PULSE 76; RESP 14; O2SAT 98
[2024-04-29] MEDS ORDERED: ASPIRIN 81 MG ECTAB PO SCH ×2 (09:00)
[2024-04-29] MEDS ORDERED: ATORVASTATIN 40 MG TAB PO SCH ×2 (09:00)
--- NOTE | 2024-04-30 08:59 | Electrocardiogram Report ---
Test Reason : Blood Pressure : */* mmHG Vent. Rate : 74 BPM Atrial Rate : 74 BPM P-R Int : 146 ms QRS Dur : 88 ms QT Int : 432 ms P-R-T Axes : 44 30 27 degrees QTcB Int : 479 ms Normal sinus rhythm Normal ECG When compared with ECG of 28-Apr-2024 12:52, Non-specific change in ST segment in Inferior leads ST no longer depressed in Lateral leads Confirmed by Ava Gonzales (Alonso) on 04/30/2024 8:58:44 AM Referred By: REFERRED SELF Confirmed By: Ava Gonzales
== END 2024-04-28 20:07 | disposition short-term general hospital (02) | DRG 251 ==
LOC: ED 12:48 → CC 13:14 → 1E 13:15